=== PATIENT | female | born 1945 | race Caucasian/White ===

== ENCOUNTER → 2016-05-23 | Outpatient (CLI) | payer OTHER ==
[~2016-05-23] MED LIST: CALCIUM 500 + D1 TAB PO; CETIRIZINE; DIOVAN160 MG PO; LISINOPRIL PO; NABUMETONE PO; PRILOSEC20 MG DOB; TRILIPIX135 MG PO; VIT E PO; VITAMIN C OTC DAILY; VITAMIN D
--- NOTE | ~2016-05-23 | MY11 ---
[facility] A Service of [facility] RADIOLOGY TEXT RESULTS PATIENT: ASHER RODRIGUEZ LOCATION: [facility] : 45 UNIT #: [id number] AGE: [address]: Uriel Smith MD SEX: F ORDER DR: [id number] [facility]. [place], [place] [address] [id number] O MR#: [id number] Acc #: [id number] NAME: ASHER RODRIGUEZ : 1945 SEX: F STUDY DATE/TIME: 05/23/2016 13:33 UNIT: [facility] ROOM: STUDY DESCRIPTION: MY Mammogram Screening Dig Ramy Attending Physician: Uriel Smith M.D. Ordering Physician: Uriel Smith M.D. Primary Care Physician: Generic Doctor Not In System MEDICAL IMAGING REPORT This report is preliminary unless electronic signature is present EXAM Bilateral digital screening mammogram with CAD COMPARISON May 16, 2015, May 12, 2014, May 10, 2013, May 07, 2012, April 24, 2011, April 18, 2010, April 12, 2009, March 30, 2008, March 26, 2007 and December 19, 2005. INDICATIONS Breast cancer screening. 70-year-old asymptomatic female who reports a mother and a sister with breast cancer. Patient reports prior benign excisional biopsy of the right breast. FINDINGS There are scattered fibroglandular densities. There are no suspicious findings in either breast. IMPRESSION No mammographic evidence of malignancy. Technically, [place] [employer] recommends annual screening breast MRI in conjunction with annual screening mammography for patients with 2 first-degree relatives with breast cancer. Given the patient's age, it is uncertain how much additional lifetime breast cancer screening benefit this would add. At the minimum, continued annual screening mammography is recommended. Patients over the age of 40 are entered into a reminder system with target due date for the next mammogram. A result letter will also be sent to the patient. BIRADS: 1 Negative [facility] A Service [facility] RADIOLOGY TEXT RESULTS PATIENT: ASHRE RODRIGUEZ LOCATION: [facility] : 45 UNIT #: [id number] AGE: [address]: Uriel Smith MD SEX: F ORDER DR: Dictated by... Jerry Collier M.D. THIS IS AN ELECTRONICALLY VERIFIED REPORT Jerry Collier M.D. at 05/26/2016 6:33 PM BLM/psc TD: 05/23/2016 21:02 JOB #: [id number] MEDICAL IMAGING REPORT COPY
== END | disposition home or self-care (01) ==
LOC: CWCC 12:54
DX: Z12.31 Encounter for screening mammogram for malignant neoplasm of breast (principal); Z80.3 Family history of malignant neoplasm of breast; Z98.890 Other specified postprocedural states
CPT/HCPCS: G0202